=== PATIENT | male | born 1960 | race Hispanic/Latino ===

== ENCOUNTER 2024-03-27 15:14 | Emergency (ER) | payer BC ==
[~2024-03-27] VITALS: Ht 177.8 cm; Wt 98.4 kg
[2024-03-27 17:09] LABS: BASOPHILS # (AUTO) 0.03 K/uL (0.00-0.20); BASOPHILS % (AUTO) 0.3 % (0.0-5.0); EOSINOPHILS # (AUTO) 0.05 K/uL (0.00-0.70); EOSINOPHILS % (AUTO) 0.5 % (0.0-8.0); HEMATOCRIT 44.7 % (42-54); IMMATURE GRANULOCYTE ABSOLUTE 0.04 K/uL (0-1); LYMPHOCYTES # (AUTO) 1.4 K/uL (1.0-4.8); LYMPHOCYTES % (AUTO) 15.8 % (21.0-51.0); MEAN CORPUSCULAR HEMOGLOBIN 30.2 pg (27.0-33.0); MEAN CORPUSCULAR HGB CONC 34.7 g/dL (32.0-36.0); MONOCYTES % (AUTO) 10.8 % (3.0-13.0); NEUTROPHILS # (AUTO) 6.6 K/uL (1.8-7.7); NEUTROPHILS % (AUTO) 72.2 % (40.0-77.0); PLATELET COUNT (AUTO) 262 K/uL (130-400); RED BLOOD CELL COUNT(AUTO) 5.14 MIL/uL (4.50-6.20); RED CELL DISTRIBUTION WIDTH 12.6 % (11.0-15.5); WHITE BLOOD COUNT (AUTO) 9.1 K/uL (4.8-10.8)
[2024-03-27 17:16] LABS: CREATININE 0.9 mg/dL (0.5-1.3); POTASSIUM 3.7 mmol/L (3.5-5.1)
[2024-03-27] MEDS: CLINDAMYCIN IVPB 600MG/50ML 50 ML IV STA (17:19)
[2024-03-27] MEDS: DIPH,PERTUSS(ACELL),TET VAC/PF 0.5 ML VIAL IM ONE (17:21)
[2024-03-27] MEDS ORDERED: CLIN-141 PO (17:29)
[2024-03-27] MEDS: MUPIROCIN OINTMENT 22 GM TUBE TP SCH (18:00)
[2024-03-27] MEDS: KETOROLAC 30MG VIAL (30MG/ML) ONE (18:01)
[2024-03-27] MEDS: KETOROLAC 30MG VIAL (30MG/ML) IVP ONE (18:01)
[2024-03-27] MEDS: NEOMY SULF/BACITRA/POLYMYXIN B 1 EACH PACKET TP ONE (18:02)
[2024-03-27 18:04] VITALS: BP 156/80; PULSE 78; RESP 18; O2SAT 98
== END 2024-03-27 18:13 | disposition home or self-care (01) ==
LOC: EDH 15:14 → EDSEX 15:14 → EDH 18:13
DX: L02.413 Cutaneous abscess of right upper limb (principal); I10 Essential (primary) hypertension; E11.9 Type 2 diabetes mellitus without complications; E78.00 Pure hypercholesterolemia, unspecified; Z90.49 Acquired absence of other specified parts of digestive tract; Z98.890 Other specified postprocedural states
CPT/HCPCS: 99284; 96365; 96375; 80048; 85025; 36415; 90715; 96372; J1885; J3490